=== PATIENT | female | born 1960 | race Caucasian/White ===

== ENCOUNTER → 2017-10-28 07:19 | Outpatient (CLI) | payer OTHER, SELFPAY ==
[2017-10-28 09:15] LABS: Absolute Lymphocyte Count 1.88 X10^3/ul (0.83-4.51); Absolute Neutrophil Count 2.8 X10^3/uL (2.0-7.7); Basophil# 0.04 X10^3/uL; Basophil% 0.8 % (0-1); Eosinophil# 0.16 X10^3/uL; Hematocrit 40.1 % (37-47); Lymphocyte # 1.88 X10^3/ul (4.0); Lymphocyte % 35.7 % (19-41); Mean Corp Hgb Conc 32.4 g/gl (32-36); Mean Corpuscular Hgb 29.7 pg (27.0-32.0); Mean Corpuscular Volume 91.6 fL (81-99); Mean Platelet Vol. 9.9 fl (6.2-12.0); Monocyte% 7.6 % (0-10); Neutrophil # 2.77 X10^3/uL (2.7-7.7); Neutrophil % 52.7 % (47-70); Platelet Count 292 K/mm3 (150-450); RBC Distribution Width CV 13.2 % (11.6-14.6); RBC Distribution Width SD 43.9 fl (35.1-43.9); Red Blood Count 4.38 M/mm3 (4.2-5.4); White Blood Count 5.3 K/mm3 (4.4-11.0)
[2017-10-28 09:21] LABS: POSITIVE COUNT NO; POSITIVE DIFFERENTIAL NO; POSITIVE MORPHOLOGY NO
[2017-10-28 09:24] LABS: Erythrocyte Sedimentation Rate 5 mm/hr (0-30)
[2017-10-28 09:52] LABS: Cholesterol 217 mg/dL (200); High Density Lipoprotein 82 mg/dL; Rheumatoid Factor < 10.0 IU/mL (<15); Triglycerides 78 mg/dL; Very Low Density Lipoprotein 16 mg/dL (5-40)
[2017-10-29 08:51] LABS: Vitamin D,25 Hydroxy 36.2 ng/mL (29.95-100.01)
[2017-10-30 09:26] LABS: ANTINUCLEAR ANTIBODIES DIRECT Negative (Negative)
== END ==
PROVIDERS: Family Provider Family Medicine; PCP Family Medicine; Visit Provider Family Medicine
DX: M25.50 Pain in unspecified joint (principal); E78.5 Hyperlipidemia, unspecified
CPT/HCPCS: 36415; 80061; 82306; 85025; 85652; 86038; 86431

== ENCOUNTER → 2017-12-09 15:32 | Outpatient (CLI) | payer OTHER, SELFPAY ==
--- NOTE | 2017-12-09 15:41 | MRI_ITS ---
STUDY: MRI LEFT FOREFOOT WITHOUT CONTRAST REASON FOR EXAM: Lateral left foot pain and pain at metatarsophalangeal joints. No specific injury. TECHNIQUE: Standardized fat and water weighted pulse sequences were obtained in all 3 orthogonal planes. COMPARISON: None. FINDINGS: There is mild arthrosis with mild chondral thinning of the metatarsophalangeal joint of the hallux (T1 sagittal image 6). Normal tibial and fibular sesamoids, with normal sesamoids-first metatarsal articulations. Normal interphalangeal joint of the hallux. Normal proximal and distal phalanges of the great toe. Normal medial and lateral heads of the flexor hallucis brevis tendons. Normal flexor and extensor hallucis longus tendons. Normal second through fifth metatarsophalangeal (MTP) joints. There is no demonstrated tear of the plantar plate of the second metatarsophalangeal joint (inversion recovery sagittal images 10-12). Normal interphalangeal joints of the second through fifth toes. There is mild bone edema of the base and diaphysis of the third proximal phalanx (inversion recovery sagittal image 15), a stress phenomenon. Normal first through fourth intermetatarsal spaces. Normal flexor and extensor tendons of the second through fifth toes. There is no metatarsal stress fracture. Normal intrinsic muscles of the forefoot. There is arthrosis of the navicular-cuneiform articulations with chondral thinning and subchondral cystic change/mild bone edema (inversion recovery sagittal images 4-9). There is mild arthrosis of the second and third tarsometatarsal joints with mild chondral thinning and mild subchondral bone edema (inversion recovery sagittal images 9-12). There is no demonstrated soft tissue abnormality. MRI/Lower Ext/No Jt/w/o IMPRESSION: Mild arthrosis of the first metatarsophalangeal joint. Mild bone edema of the third proximal phalanx, a stress phenomenon. Arthrosis of the navicular-cuneiform articulations. Mild arthrosis of the second and third tarsometatarsal joints. No demonstrated plantar plate tear of the second metatarsophalangeal joint. Electronically Signed: Oziel Santos MD at 10:22 EDT Tel , Service support ,
== END ==
PROVIDERS: Family Provider Family Medicine; PCP Family Medicine; Visit Provider Podiatrist
DX: M19.072 Primary osteoarthritis, left ankle and foot (principal); S93.145A Subluxation of metatarsophalangeal joint of left lesser toe(s), initial encounter
CPT/HCPCS: 73718

== ENCOUNTER → 2017-12-18 16:25 | Outpatient (CLI) | payer OTHER, SELFPAY ==
--- NOTE | 2017-12-18 16:29 | RAD_ITS ---
STUDY: X-RAY - LEFT TIBIA AND FIBULA REASON FOR EXAM: Female, 57 years old. 3 osteoarthritis left foot TECHNIQUE: 4 view(s) of the tibia and fibula were obtained. COMPARISON: None. FINDINGS: Normal visualized tibia. Normal visualized fibula. The soft tissue structures are unremarkable. RAD/Tibia & Fibula 2 Views IMPRESSION: Normal x-ray examination of the tibia and fibula. Electronically Signed: Elidia Shelton MD at 0:14 EDT , Service support ,
== END ==
PROVIDERS: Family Provider Family Medicine; PCP Family Medicine; Visit Provider Podiatrist
DX: M19.072 Primary osteoarthritis, left ankle and foot (principal)
CPT/HCPCS: 73590

== ENCOUNTER → 2018-02-13 15:06 | Outpatient (CLI) | payer OTHER, SELFPAY ==
--- NOTE | 2018-02-13 15:16 | MRI_ITS ---
STUDY: MRI LEFT TIBIA/FIBULA WITHOUT CONTRAST. REASON FOR EXAM: Female, 58 years old. Painful lump in the proximal lateral aspect of the extremity slightly inferior to the knee joint. TECHNIQUE: Standardized fat and water weighted pulse sequences were obtained in all 3 orthogonal planes, IV contrast is not utilized. COMPARISON: X-ray left tibia/fibula: 01/2018 FINDINGS: T2-weighted STIR images show a 1.5 x 0.8 cm hypointense/well-defined mass originating laterally from the left proximal tibiofibular joint with a BB marker/painful concern, consistent with a cyst, most likely a ganglion cyst with questionable peroneal nerve disesthesia. A smaller sized cyst is also seen originating laterally from the right proximal tibiofibular joint. Unremarkable subcutis adipose space. Normal visualized tibia and fibula. MRI/Lower Ext/No Jt/w/o IMPRESSION: A 1.5 x 0.8 cm likely ganglion cyst seen originating from the left proximal tibiofibular joint with questionable fibular nerve compression. Clinical correlation is advised. Electronically Signed: Rodger Shrestha MD at 10:12 EDT Tel , Service support ,
== END ==
PROVIDERS: Family Provider Family Medicine; PCP Family Medicine; Visit Provider Family Medicine
DX: R22.42 Localized swelling, mass and lump, left lower limb (principal)
CPT/HCPCS: 73718

== ENCOUNTER → 2018-05-19 19:08 | Outpatient (CLI) | payer OTHER, SELFPAY ==
[2018-05-22 18:42] LABS: HPV Reflexed? NOT INDICATED
== END ==
PROVIDERS: Referring Provider Nurse Practitioner Adult Health; Visit Provider Nurse Practitioner Adult Health
DX: Z01.419 Encounter for gynecological examination (general) (routine) without abnormal findings (principal)
CPT/HCPCS: 88175; G0145

== ENCOUNTER → 2019-05-24 06:36 | Outpatient (CLI) | payer OTHER, SELFPAY ==
--- NOTE | 2019-05-24 06:38 | RAD_ITS ---
STUDY: X-RAY - RIGHT ELBOW REASON FOR EXAM: Female, 59 years old. Possible loose hardware. TECHNIQUE: 3 view(s) of the elbow. COMPARISON: Right forearm, May 24, 2018 FINDINGS: Normal visualized humerus. There is abnormality of the radial head with marked erosion and bony changes thought to be chronic. There is a metallic plate and screws along the dorsal aspect of the proximal ulna. The hardware is intact without evidence of loosening. There is no visualized acute fracture.. 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 The soft tissue structures are unremarkable. RAD/Elbow min 3 Views IMPRESSION: 1. Evidence of internal fixation of a now healed proximal ulnar fracture. The hardware is intact without evidence of loosening from the underlying bone. 2. Erosive changes of the head of the radius. Question old fracture versus chronic change. Electronically Signed: John Guardado DO at 20:28 EDT Tel [phone], Service support ,
--- NOTE | 2019-05-24 06:38 | RAD_ITS ---
STUDY: X-RAY - RIGHT RADIUS AND ULNA REASON FOR EXAM: Female, 59 years old. Possible loose hardware. Patient cannot extend arm. TECHNIQUE: 2 view(s) of the forearm. COMPARISON: None. FINDINGS: There is no demonstrated soft tissue swelling. Normal visualized radius. There is a metallic plate and screws along the underside of the proximal ulna. There is no old healed fracture. There is no loosening of the hardware or evidence of hardware fracture. The screws are intact. The elbow and wrist demonstrate mild degenerative changes. RAD/Forearm 2 Views IMPRESSION: Evidence of remote internal fixation of a proximal ulnar fracture. The hardware is intact without loosening from the underlying bone. Electronically Signed: John Guardado DO at 20:25 EDT Tel [phone], Service support ,
== END ==
PROVIDERS: Family Provider Family Medicine; PCP Family Medicine; Referring Provider Nurse Practitioner Family; Visit Provider Nurse Practitioner Family
DX: M79.601 Pain in right arm (principal)
CPT/HCPCS: 73080; 73090

== ENCOUNTER 2020-05-10 11:03 | Outpatient (RCR) | payer OTHER, SELFPAY ==
[2020-05-02 16:00] VITALS: BMI 29.2
== END 2020-05-24 23:59 ==
LOC: EMPH 11:03
PROVIDERS: PCP Family Medicine; Visit Provider Family Medicine Geriatric Medicine
DX: Z11.59 Encounter for screening for other viral diseases (principal)
CPT/HCPCS: 87635; U0003

== ENCOUNTER → 2020-05-24 | Outpatient (CLI) | payer OTHER, SELFPAY ==
[2020-05-02 16:00] VITALS: BMI 29.2
--- NOTE | 2020-05-24 14:56 | BI_ITS ---
MAMMOGRAPHY - BILATERAL SCREENING REASON FOR EXAM: Female, 60 years old. Routine annual screening examination. PERTINENT HISTORY: Non-contributory. Remote right ultrasound-guided breast biopsy. TECHNIQUE: Digital bilateral breast lor (3D mammographic acquisition) in the CC and MLO projections. 2-D mediolateral oblique (MLO) and craniocaudad (CC) views of both breasts were obtained. CAD: Full Field Digital Mammography with Computer Added Detection was performed. COMPARISON: Comparison is made with prior examination dated 07/07/2014. FINDINGS: Breast Composition: There are scattered areas of fibroglandular density. There are no dominant masses or suspicious calcifications. A tissue marker is seen within a tiny nodule in the upper lateral portion of the right breast. The nodule has decreased in size as compared to prior study. No other significant abnormalities are identified. There has been no significant change since the prior study. BI/SCREEN MAMM (CAD) W/LOR BILAT IMPRESSION: Stable bilateral screening mammogram. Yearly follow-up mammogram recommended. (A) ASSESSMENT CATEGORY: BIRADS Category 2: Benign. A letter regarding these results will be sent to the patient by the facility within 30 days. Approximately 10% of breast cancers are not detected by mammography. A normal mammogram should not delay biopsy of a clinically suspicious abnormality. [id number] Electronically Signed: Dean Foreman, at 15:49 EDT , Service support ,
== END | disposition home or self-care (01) ==
PROVIDERS: PCP Family Medicine; Referring Provider Family Medicine; Visit Provider Family Medicine
DX: Z12.31 Encounter for screening mammogram for malignant neoplasm of breast (principal)
CPT/HCPCS: 77063; 77067

== ENCOUNTER 2020-06-19 10:05 | Outpatient (RCR) | payer OTHER, SELFPAY ==
[2020-05-02 16:00] VITALS: BMI 29.2
== END 2020-06-24 23:59 ==
LOC: EMPH 10:05
PROVIDERS: PCP Family Medicine; Visit Provider Family Medicine Geriatric Medicine
DX: Z11.59 Encounter for screening for other viral diseases (principal)
CPT/HCPCS: 87426

== ENCOUNTER 2020-07-19 10:40 | Outpatient (RCR) | payer OTHER, SELFPAY ==
[2020-05-02 16:00] VITALS: BMI 29.2
== END 2020-07-24 23:59 ==
LOC: EMPH 10:40
PROVIDERS: PCP Family Medicine; Visit Provider Family Medicine Geriatric Medicine
DX: Z20.828 Contact with and (suspected) exposure to other viral communicable diseases (principal)
CPT/HCPCS: 87426

== ENCOUNTER 2020-08-23 16:54 | Outpatient (RCR) | payer OTHER, SELFPAY ==
[2020-07-05 10:51] VITALS: BMI 30.2
== END 2020-08-24 23:59 ==
LOC: EMPH 16:54
PROVIDERS: PCP Family Medicine; Referring Provider Family Medicine Geriatric Medicine; Visit Provider Family Medicine Geriatric Medicine
DX: Z03.818 Encounter for observation for suspected exposure to other biological agents ruled out (principal)
CPT/HCPCS: 87426

== ENCOUNTER 2020-09-19 07:15 | Outpatient (RCR) | payer OTHER, SELFPAY | END 2020-09-24 23:59 | LOC: EMPH 07:15 | PROVIDERS: PCP Family Medicine; Referring Provider Family Medicine Geriatric Medicine; Visit Provider Family Medicine Geriatric Medicine | DX: Z03.818 Encounter for observation for suspected exposure to other biological agents ruled out (principal) | CPT/HCPCS: 87426 ==

== ENCOUNTER 2020-09-22 08:37 | Outpatient (RCR) | payer OTHER, SELFPAY | END 2020-09-24 23:59 | LOC: EMPH 08:37 | PROVIDERS: PCP Family Medicine; Referring Provider Family Medicine Geriatric Medicine; Visit Provider Family Medicine Geriatric Medicine | DX: Z03.818 Encounter for observation for suspected exposure to other biological agents ruled out (principal) | CPT/HCPCS: 87426 ==

== ENCOUNTER 2020-10-20 14:51 | Outpatient (RCR) | payer OTHER, SELFPAY | END 2020-10-22 23:59 | LOC: EMPH 14:51 | PROVIDERS: PCP Family Medicine; Referring Provider Family Medicine Geriatric Medicine; Visit Provider Family Medicine Geriatric Medicine | DX: Z20.828 Contact with and (suspected) exposure to other viral communicable diseases (principal) | CPT/HCPCS: 87426 ==

== ENCOUNTER 2020-11-02 13:31 | Outpatient (RCR) | payer OTHER, SELFPAY | END 2020-11-22 23:59 | LOC: EMPH 13:31 | PROVIDERS: PCP Family Medicine; Referring Provider Family Medicine Geriatric Medicine; Visit Provider Family Medicine Geriatric Medicine | DX: Z20.828 Contact with and (suspected) exposure to other viral communicable diseases (principal) | CPT/HCPCS: 87426 ==

== ENCOUNTER 2020-11-28 12:00 | Outpatient (RCR) | payer OTHER, SELFPAY | END 2020-12-22 23:59 | LOC: EMPH 12:00 | PROVIDERS: PCP Family Medicine; Referring Provider Family Medicine Geriatric Medicine; Visit Provider Family Medicine Geriatric Medicine | DX: Z20.828 Contact with and (suspected) exposure to other viral communicable diseases (principal) | CPT/HCPCS: 87426 ==

== ENCOUNTER 2021-01-12 10:14 | Outpatient (RCR) | payer OTHER, SELFPAY | END 2021-01-22 23:59 | LOC: EMPH 10:14 | PROVIDERS: PCP Family Medicine; Referring Provider Family Medicine Geriatric Medicine; Visit Provider Family Medicine Geriatric Medicine | DX: Z03.818 Encounter for observation for suspected exposure to other biological agents ruled out (principal) | CPT/HCPCS: 87426 ==

== ENCOUNTER 2021-05-24 13:10 | Outpatient (RCR) | payer OTHER, SELFPAY | END 2021-05-24 23:59 | LOC: EMPH 13:10 | PROVIDERS: PCP Family Medicine; Referring Provider Family Medicine Geriatric Medicine; Visit Provider Family Medicine Geriatric Medicine | DX: Z03.818 Encounter for observation for suspected exposure to other biological agents ruled out (principal) | CPT/HCPCS: 87426 ==

== ENCOUNTER → 2022-06-17 | Outpatient (CLI) | payer OTHER, SELFPAY ==
--- NOTE | 2022-06-17 07:10 | BI_ITS ---
MAMMOGRAPHY - BILATERAL SCREENING REASON FOR EXAM: Female, 62 years old. Routine annual screening examination. PERTINENT HISTORY: Non-contributory. TECHNIQUE: Digital bilateral breast lor (3D mammographic acquisition) in the CC and MLO projections. 2-D mediolateral oblique (MLO) and craniocaudad (CC) views of both breasts were obtained. CAD: Full Field Digital Mammography with Computer Added Detection was performed. COMPARISON: Comparison is made with prior examination dated 05/24/2020 and 07/07/2014. FINDINGS: Breast Composition: There are scattered areas of fibroglandular density. There are no dominant masses or suspicious calcifications. A tissue clip marker is seen in the upper lateral aspect of the right breast. Stable appearance of the nodular density. No other significant abnormalities are identified. There has been no significant change since the prior study. BI/SCRN MAMM (CAD)W/LOR BILAT IMPRESSION: Stable bilateral screening mammogram. Yearly follow-up mammogram recommended. (A) ASSESSMENT CATEGORY: BIRADS Category 2: Benign. A letter regarding these results will be sent to the patient by the facility within 30 days. Approximately 10% of breast cancers are not detected by mammography. A normal mammogram should not delay biopsy of a clinically suspicious abnormality. [id number] Electronically Signed: Dean Foreman MD at 9:45 EDT ,
== END | disposition home or self-care (01) ==
LOC: OPBI 07:08
PROVIDERS: PCP Family Medicine; Visit Provider Nurse Practitioner Family
DX: Z12.31 Encounter for screening mammogram for malignant neoplasm of breast (principal)
CPT/HCPCS: 77063; 77067